=== PATIENT | female | born 1940 | race Caucasian/White ===

== ENCOUNTER 2018-01-24 09:35 | Emergency (ER) | payer MEDICARE, OTHER ==
--- NOTE | 2018-01-24 10:31 | UC ---
Lower Extremity/Ankle HPI - HPI Summary HPI Summary: 77 YO FEMALE WITH THE ONSET OF RIGHT CALF PAIN AND SWELLING ABOUT 5 DAY AGO RECENTLY DROVE HERE FROM [place] NO CP OR SOB NO SYNCOPE NO HX DVT OR PE - History of Current Complaint Chief Complaint: UCLowerExtremity Stated Complaint: RT LEG/POSSIBLE BLOOD CLOT Time Seen by Provider: 01/24/18 10:12 Hx Obtained From: Patient Onset/Duration: Gradual Onset, Lasting Days Severity Initially: Mild Severity Currently: Moderate Pain Intensity: 5 Pain Scale Used: 0-10 Numeric Aggravating Factor(s): Standing, Ambulation Alleviating Factor(s): Rest, Elevation Able to Bear Weight: Yes - Risk Factors DVT Risk Factors: Recent Travel - Allergies/Home Medications Allergies/Adverse Reactions: Allergies Allergy/AdvReac Type Severity Reaction Status Date / Time codeine Allergy Vomiting Verified 01/24/18 09:49 Home Medications: Home Medications Fluticasone/Vilanterol MDI(NF) [Breo Ellipta MDI 200/25(NF)] 1 puff INH DAILY [History Confirmed 01/24/18] Tiotropium CAP.INH* [Spiriva CAP.INH*] 1 cap.inh INH DAILY 01/24/18 [History Confirmed 01/24/18] PMH/Surg Hx/FS Hx/Imm Hx Previously Healthy: Yes Respiratory History: Asthma, Bronchitis - Surgical History Surgical History: Yes Surgery Procedure, Year, and Place: breast biopsy MANY, LAST 2001 [facility] [place],. 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 12.2011 RIGHT EYE CATARACT [facility] [place]. D&C. LEFT EYE CATARACT. CHAIRI MALFORMATION - Family History Known Family History: Positive: Cardiac Disease, Hypertension, Diabetes, Other - NO FHX DVT - Social History Alcohol Use: Rare Substance Use Type: None Smoking Status (MU): Former Smoker Type: Cigarettes When Did the Patient Quit Smoking/Using Tobacco: IN HER 20'S - Immunization History Most Recent Influenza Vaccination: 06/2015 Most Recent Pneumonia Vaccination: 06/2015 Review of Systems Constitutional: Negative Skin: Negative Eyes: Negative ENT: Negative Respiratory: Negative Cardiovascular: Negative Gastrointestinal: Negative Genitourinary: Negative Motor: Negative Neurovascular: Negative Musculoskeletal: Myalgia Neurological: Negative Psychological: Negative Is Patient Immunocompromised?: No All Other Systems Reviewed And Are Negative: Yes Physical Exam Triage Information Reviewed: Yes Appearance: Well-Appearing, No Pain Distress, Well-Nourished Vital Signs: Initial Vital Signs Temp 99.3 F 01/24/18 09:54 Pulse 96 01/24/18 09:54 Resp 20 01/24/18 09:54 BP 121/73 01/24/18 09:54 Pulse Ox 96 01/24/18 09:54 Vital Signs Reviewed: Yes Eyes: Positive: Conjunctiva Clear ENT: Positive: Hearing grossly normal. Negative: Nasal congestion, Nasal drainage, Trismus, Muffled voice, Hoarse voice Neck: Positive: Supple, Nontender, No Lymphadenopathy Respiratory: Positive: Lungs clear, Normal breath sounds, No respiratory distress Cardiovascular: Positive: RRR, No Murmur. Negative: Tachycardia Musculoskeletal: Positive: Strength Intact, Other: - ANTALGIC GAIT RIGHT CALF SWOLLEN AND TENDER Neurological Exam: Normal Neurological: Positive: Alert Psychological Exam: Normal Skin Exam: Normal Diagnostics - Radiology No standard instances Xray Interpretation: Positive (See Comments) - LARGE BURDEN OCCLUSIVE THROMBUS OF THE RIGHT LOWER EXTREMITY EXTENDING INTO THE RIGHT ILIAC VEIN Radiology Interpretation Completed By: Radiologist Lower Extremity Course/Dx - Course Course Of Treatment: [facility] called. d/w Sena Gates NP. to [facility] [place] [facility] via POV - Differential Dx/Diagnosis Provider Diagnoses: Large RLE DVT Discharge - Sign-Out/Discharge Documenting (check all that apply): Discharge/Admit/Transfer - Discharge Plan Condition: Stable Disposition: TRANS HIGHER LVL OF CARE FAC Referrals: Sergio Trejo MD [Primary Care Provider] - Additional Instructions: They are expecting your at the [facility] please go directly there take your u/s with you - Billing Disposition and Condition Condition: STABLE Disposition: EMTALA Images Front/Back of Body, Lg ([place]): 1 - 10 CM BELOW TIBIAL TUBERCLE. R 39CM L 37.5 2 - 20 CM BELOW TIBIAL TUBERCLE. R 31.5CM L 28.5 CM
--- NOTE | 2018-01-24 10:52 | RAD ---
HISTORY: Pain and swelling in the right calf COMPARISONS: None relevant TECHNIQUE: Multiple transverse and longitudinal ultrasound images were obtained of the right lower extremity from the level of the common femoral vein inferiorly through to the infrapopliteal veins using grayscale, color Doppler, and spectral Doppler imaging with and without compression and with augmentation. Comparison images were obtained of the contralateral common femoral vein. FINDINGS: VEINS: There is occlusive thrombus noted within the right lower kirsten from the calf extending superiorly to the common femoral vein and into the external iliac vein. SOFT TISSUES: Unremarkable. OTHER FINDINGS: None. 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
[2018-01-24 11:15] VITALS: BP 119/74
== END 2018-01-24 11:28 | disposition short-term general hospital (02) ==
LOC: UCCORT 09:35
DX: I82.421 Acute embolism and thrombosis of right iliac vein (principal); Z88.5 Allergy status to narcotic agent; J45.909 Unspecified asthma, uncomplicated; Z87.891 Personal history of nicotine dependence
CPT/HCPCS: 99212; G0463

== ENCOUNTER 2019-05-15 10:57 | Emergency (ER) | payer MEDICARE, OTHER ==
--- OUTSIDE RECORDS SUMMARY | 2019-05-15 11:08 | XMS REPORT | Continuity of Care Document ---
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 Onset: Asthma without status asthmaticus Jennie Fontana DO Onset: 02/07/2018 Pulmonary embolism Jennie Fontana DO Onset: 02/07/2018 Social History Type Date Description Comments Sex Unknown ETOH Use Currently consumes alcohol socially Tobacco Use Start: Unknown End: Patient is a former smoked a ppd x 2 Unknown smoker years Quit 50 years ago Recreational Drug Use Never Used Drugs Smoking Status Reviewed: 03/10/19 Patient is a former smoked a ppd x 2 smoker years Quit 50 years ago Exercise Type/Frequency Exercises regularly Water Allergies, Adverse Reactions, Alerts Active Allergies Reaction Severity Comments Date Codeine 07/26/2017 Medications Active Medications SIG Qnty Indications Ordering Date Provider Folbee 1 tabl by mouth every 90tabs Boal, 03/10/2019 2.5-25-1mg day Jennie, DO Tablets Xarelto 1 tabl by mouth every 30tabs Boufal, 02/21/2018 20mg Tablets day Jennie, DO Acetazolamide 500 mgs 2x a day Neil, 250mg Sergio Tablets Levothyroxine Sodium 1 po qd Neil, Sergio 25mcg Tablets Montelukast Sodium 1 po qd Neil, Sergio 10mg Tablets Afluria Preservative Kesha, Agatha Deborah Yan MD 0.5ml Olivia Simmonsta 1 x a day Unknown 100-25mcg/Inh Aerosol Klor-Con M10 Neil, 10Meq Sergio Tablets ER Fluticasone Neil, Propionate Sergio 50mcg/Act Suspension Celecoxib 1 by mouth once a day Unknown 200mg with food Capsules Fexofenadine HCL 1 by mouth at night Unknown 180mg Tablets Spiriva Respimat take 2 puffs once Unknown daily. 2.5mcg/Act Aerosol Levalbuterol 1 puff every 6 hours Unknown Tartrate as needed for 45mcg/Act shortness of breath Aerosol or coughing Folic Acid 1 by mouth every day Unknown 1mg Tablets Nucala inject 100mg Unknown 100mg Solution subcutaneously every Rec 4 weeks Medications Administered in Office Medication SIG Qnty Indications Ordering Provider Date Vitamin B12 Injection 1000 Oncology Nurse 08/04/2018 mcg/Ml Injection Vitamin B12 Injection 1000 Jennie Fontana, 07/06/2018 mcg/Ml Injection Vitamin B12 Injection 1000 Oncology Nurse 04/13/2018 mcg/Ml Injection Theraputic Or Diagnostic Oncology Nurse 04/13/2018 Injection Injection Vitamin B12 Injection 1000 Oncology Nurse 03/23/2018 mcg/Ml Injection Theraputic Or Diagnostic Oncology Nurse 03/23/2018 Injection Injection Vitamin B12 Injection 1000 Jennie Fontana DO 02/21/2018 mcg/Ml Injection Theraputic Or Diagnostic Jennie Fontana DO 02/21/2018 Injection Injection Immunizations Description No Information Available Vital Signs Date Vital Result Comment 05/02/2019 1:55pm BP Systolic 143 mmHg BP Diastolic 86 mmHg Body Temperature 98.2 F Heart Rate 76 /min Height 62 inches 5'2" Weight 156.25 lb BMI (Body Mass Index) 28.6 kg/m2 BSA (Body Surface Area) 1.72 m2 [place] body weight in kilograms 50 kg O2 % BldC Oximetry 96 % Pain Level 3 Lt knee 03/10/2019 10:38am BP Systolic 139 mmHg BP Diastolic 84 mmHg Body Temperature 97.0 F Heart Rate 71 /min Respiratory Rate 20 /min Height 62 inches 5'2" Weight 156.00 lb BMI (Body Mass Index) 28.5 kg/m2 BSA (Body Surface Area) 1.72 m2 [place] body weight in kilograms 50 kg O2 % BldC Oximetry 96 % Pain Level 3 back of L knee due to strain Results Test Date Facility Test Result H/L Range Note Iron-Tibc-%Sat 04/24/2019 [facility] Serum Iron 71 g/dL Normal 50-170 1 [address] [place], [place] [id number] [phone] Total Iron Binding Capacity 340 g/dL Normal 250-450 Transferrin %Saturation 21 % Normal 12-57 Laboratory test 04/24/2019 [facility] Ferritin 10 ng/mL Normal 8-252 finding [address] [place] [address] [phone] CBC W/Automated 04/24/2019 [facility] White Blood 5.3 K/uL Normal 3.1-10.7 Diff [address] [place] [address] [phone] Red Blood Count 4.49 M/uL Normal 3.90-5.40 Hemoglobin 13.2 gm/dL Normal 11.6-15.8 Hematocrit 42.5 % Normal 36.0-46.1 Mean Cell Volume 94.7 fl Normal 80.9-99.0 Mean Corpuscular HGB 29.4 pg Normal 25.9-32.7 Mean Corpuscular HGB Conc 31.1 g/dL Normal 30.8-34.3 Platelet Count 235 K/uL Normal 155-360 Red Cell Distri Width SD 44.5 fl Normal 36-47 Red Cell Distri Width %CV 12.9 % Normal 11.7-14.4 Mean Platelet Volume 10.4 fl Normal 8.9-12.4 Neut% 49.8 % Normal 40.4-72.8 Lymph % 41.2 % Normal 20.0-42.0 [place] % 7.1 % Normal 4.3-13.2 Eo% 0.9 % Normal 0.0-6.6 Bas% 0.8 % Normal 0.0-1.1 Immature Grans 0.2 % Normal 0.0-5.0 NRBC % 0.0 /100WBC < 10/ 100 WBC Neut# 2.65 K/uL Normal 1.8-7.0 Lymph # 2.19 K/uL Normal 1.0-4.0 [place] # 0.38 K/uL Normal 0.3-0.9 Eos # 0.05 K/uL Normal 0.0-0.5 Baso # 0.04 K/uL Normal 0.0-0.1 Immature Grans Absolute 0.01 K/uL NRBC # 0.00 K/uL Comprehensive 04/24/2019 [facility] Glucose 96 mg/dL Normal 74-106 Metabolic Panel [address] [place], [place] [id number] [phone] BUN 17 mg/dL Normal 7-18 Creatinine 0.7 mg/dL Normal 0.6-1.3 Glom Filtration Rate, Estimate >60 mL/min >60 If >60 mL/min >60 2 BUN/Creat 24.2 ratio Sodium 146 mmol/L High 136-145 Potassium 3.9 mmol/L Normal 3.5-5.1 Chloride 121 mmol/L Critical high 98-107 Carbon Dioxide 18 mmol/L Low 21-32 Anion Gap 7 mEq/L Low 8-16 Calcium 8.2 mg/dL Low 8.5-10.1 Total Protein 6.5 g/dL Normal 6.4-8.2 Albumin 3.4 g/dL Normal 3.4-5.0 Globulin 3.1 g/dL Normal 1.9-4.3 Alb/Glob 1.1 ratio Bilirubin,Total 0.3 mg/dL Normal 0.2-1.0 Sgot/Ast 11 U/L Low 15-37 3 SGPT/Alt 17 U/L Normal 12-78 Alkaline Phosphatase 67 U/L Normal 45-117 Vitamin B12 And 04/24/2019 [facility] Vitamin B12 428 pg/mL Normal 193-[address] [place], [place] [id number] [phone] Folic Acid > 20.0 ng/mL High 3.1-17.5 Homocyst(E)Ine, 01/27/2019 [facility] Homocyst(e)ine, 12.2 0.0-15.0 4, P/S [address] P/S umol/L 5 [place] [address] [phone] Iron-Tibc-%Sat 01/27/2019 [facility] Serum Iron 89 Normal 50-[address] g/[place] [address] [phone] Total Iron Binding Capacity 359 g/dL Normal 250-450 Transferrin %Saturation 25 % Normal 12-57 Laboratory test 01/27/2019 [facility] Ferritin 15 ng/mL Normal 8-[address] [place] [address] [phone] CBC W/Automated 01/27/2019 [facility] White Blood 5.7 K/uL Normal 3.1-10.[address] [place] [address] [phone] Red Blood Count 4.40 M/uL Normal 3.90-5.40 Hemoglobin 13.6 gm/dL Normal 11.6-15.8 Hematocrit 42.9 % Normal 36.0-46.1 Mean Cell Volume 97.5 fl Normal 80.9-99.0 Mean Corpuscular HGB 30.9 pg Normal 25.9-32.7 Mean Corpuscular HGB Conc 31.7 g/dL Normal 30.8-34.3 Platelet Count 247 K/uL Normal 155-360 Red Cell Distri Width SD 47.4 fl High 36-47 Red Cell Distri Width %CV 13.1 % Normal 11.7-14.4 Mean Platelet Volume 10.9 fl Normal 8.9-12.4 Neut% 62.4 % Normal 40.4-72.8 Lymph % 29.8 % Normal 20.0-42.0 [place] % 6.0 % Normal 4.3-13.2 Eo% 0.9 % Normal 0.0-6.6 Bas% 0.5 % Normal 0.0-1.1 Immature Grans 0.4 % Normal 0.0-5.0 NRBC % 0.0 /100WBC < 10/ 100 WBC Neut# 3.55 K/uL Normal 1.8-7.0 Lymph # 1.69 K/uL Normal 1.0-4.0 [place] # 0.34 K/uL Normal 0.3-0.9 Eos # 0.05 K/uL Normal 0.0-0.5 Baso # 0.03 K/uL Normal 0.0-0.1 Immature Grans Absolute 0.02 K/uL NRBC # 0.00 K/uL Comprehensive Metabolic 01/27/2019 [facility] Glucose 122 mg/dL High 74-106 Panel [address] [place] [address] [phone] BUN 22 mg/dL High 7-18 Creatinine 0.9 mg/dL Normal 0.6-1.3 Glom Filtration Rate, Estimate >60 mL/min >60 If >60 mL/min >60 6 BUN/Creat 24.4 ratio Sodium 141 mmol/L Normal 136-145 Potassium 3.6 mmol/L Normal 3.5-5.1 Chloride 112 mmol/L High 98-107 Carbon Dioxide 20 mmol/L Low 21-32 Anion Gap 9 mEq/L Normal 8-16 Calcium 8.9 mg/dL Normal 8.5-10.1 Total Protein 6.7 g/dL Normal 6.4-8.2 Albumin 3.6 g/dL Normal 3.4-5.0 Globulin 3.1 g/dL Normal 1.9-4.3 Alb/Glob 1.2 ratio Bilirubin,Total 0.3 mg/dL Normal 0.2-1.0 Sgot/Ast 18 U/L Normal 15-37 SGPT/Alt 24 U/L Normal 12-78 Alkaline Phosphatase 74 U/L Normal 45-117 Vitamin B12 And 01/27/2019 [facility] Vitamin B12 379 pg/mL Normal 193-986 Folate [address] [place] [address] [phone] Folic Acid > 20.0 ng/mL High 3.1-17.5 Laboratory test 01/27/2019 [facility] Vitamin 31.4 30.0-100.0 7 finding [address] [facility] D,25-Hydroxy ng/[place] [address] [phone] 1 E53.9,E61.1,E72.12 2 Note: Persistent reduction for 3 months or more in an eGFR <60 mL/min/1.73 m2 defines CKD. Patients with eGFR values >/=60 mL/min/1.73 m2 may also have CKD if evidence of persistent proteinuria is present. The original MDRD equation for estimated GFR is not valid for patients less than 18 years of age. Additional information may be found at www.kdoqi.org. 3 Values below the stated reference ranges of AST and ALT can be seen in normal populations. Clinical correlation is suggested. 4 E53.9 E61.1 E72.12 5 Performed at: RN - [facility] [address] [id number] Tube Machine Operator Helper: Jo Rodriguez MD, Phone: [phone] 6 Note: Persistent reduction for 3 months or more in an eGFR <60 mL/min/1.73 m2 defines CKD. Patients with eGFR values >/=60 mL/min/1.73 m2 may also have CKD if evidence of persistent proteinuria is present. The original MDRD equation for estimated GFR is not valid for patients less than 18 years of age. Additional information may be found at www.kdoqi.org. 7 Vitamin D deficiency has been defined by the [place] [employer] and an Endocrine Society practice guideline as a level of serum 25-OH vitamin D less than 20 ng/mL (1,2). The Endocrine Society went on to further define vitamin D insufficiency as a level between 21 and 29 ng/mL (2). 1. IOM ([place] [employer]). 2010. Dietary reference intakes for calcium and D. [place]: The National Academies Press. 2. Aureliano MF, Tierra NC, Tito ESCALANTE, et al. Evaluation, treatment, and prevention of vitamin D deficiency: an Endocrine Society clinical practice guideline. JCEM. 2010; 96(7):1911-30. Performed at: RN - [facility] [address] [id number] Tube Machine Operator Helper: Jo Rodriguez MD, Phone: [phone] Procedures Description No Information Available Medical Devices Description No Information Available Encounters Type Date Location Provider Dx Diagnosis Office Visit 05/02/2019 Oncology Office Shannon Carlos MD E53.9 Vitamin B 2:00p deficiency, unspecified E72.12 Methylenetetrahydrofolate reductase deficiency I26.99 Other pulmonary embolism without acute cor pulmonale Office Visit 03/10/2019 10:30a Oncology Office Boufal, I26.99 Other pulmonary Jennie, DO embolism without acute cor pulmonale E72.12 Methylenetetrahydrofolate reductase deficiency E53.9 Vitamin B deficiency, unspecified E61.1 Iron deficiency Assessments Date Code Description Provider 05/02/2019 E53.9 Vitamin B deficiency, unspecified Shannon Carlos MD 05/02/2019 E72.12 Methylenetetrahydrofolate reductase deficiency Shannon Carlos MD 05/02/2019 I26.99 Other pulmonary embolism without acute cor Shannon Carlos MD pulmonale 04/24/2019 E53.9 Vitamin B deficiency, unspecified Boufal Jennie, DO 04/24/2019 E53.9 Vitamin B deficiency, unspecified Oncology Nurse 04/24/2019 E61.1 Iron deficiency BoufalAmyJennie, DO 04/24/2019 E61.1 Iron deficiency Oncology Nurse 04/24/2019 E72.12 Methylenetetrahydrofolate reductase deficiency BojordyalAmyJennie, DO 04/24/2019 E72.12 Methylenetetrahydrofolate reductase deficiency Oncology Nurse 03/10/2019 I26.99 Other pulmonary embolism without acute cor BojordyalAmyJennie, DO pulmonale 03/10/2019 E72.12 Methylenetetrahydrofolate reductase deficiency BojordyalAmyJennie, DO 03/10/2019 E53.9 Vitamin B deficiency, unspecified Boufal, Jennie, DO 03/10/2019 E61.1 Iron deficiency BojordyalAmyJennie, DO 01/27/2019 E53.9 Vitamin B deficiency, unspecified Boufal, Jennie, DO 01/27/2019 E53.9 Vitamin B deficiency, unspecified Oncology Nurse 01/27/2019 E61.1 Iron deficiency JacquelineAmy bennettaret, DO 01/27/2019 E61.1 Iron deficiency Oncology Nurse 01/27/2019 E72.12 Methylenetetrahydrofolate reductase deficiency BoAmy watkinsaret, DO 01/27/2019 E72.12 Methylenetetrahydrofolate reductase deficiency Oncology Nurse Plan of Treatment Future Appointment(s):07/31/2019 2:00 pm - Jennie Fontana DO at Oncology [facility]1707/17/2019 2:00 pm - Oncology Nurse at Oncology [facility]1608/07/2019 11:00 am - Jose Gray MD at [facility]20/27/2019 - Shannon Carlos MDE53.9 Vitamin B deficiency, unspecifiedNew Labs:Vitamin B12 And Folate, Ordered: 05/02E72.12 Methylenetetrahydrofolate reductase deficiencyNew Labs:Vitamin B12 And Folate, Ordered: 05/02/19CBC W/Automated Diff, Ordered: Comprehensive Metabolic Panel, Ordered: 05/02/19I26.99 Other pulmonary embolism without acute cor pulmonaleNew Labs:Vitamin B12 And Folate, Ordered: CBC W/Automated Diff, Ordered: 05/02/19Comprehensive Metabolic Panel, Ordered: 05/02/19AllFollow up:return 3 months lab on return cbc/cmp/b12/fol Functional Status Description No Information Available Mental Status Description No Information Available Referrals Description No Information Available
--- OUTSIDE RECORDS SUMMARY | 2019-05-15 11:08 | XMS REPORT | Continuity of Care Document ---
:1940 Author Name [employer] Super[employer], System Address Unavailable Unavailable , Care Team Providers Name Role Phone Sergio Trejo Unavailable Sergio Trejo Unavailable José Miguel Covarrubias MD, Mc Allison Unavailable Eddy MENDEZ, Rosamaria Bronson Unavailable DeFrukhoa BUCHANAN, Renay Unavailable Sophy SHARIFN, Misa Unavailable Unavailable Ratna Singh RN Unavailable Unavailable More LRT, Uli Unavailable Unavailable Deyvi CAD PROGRAMMER, Stacia Unavailable Unavailable Katalina SHARIFN, Flor Unavailable Unavailable Spring Danielson Unavailable Unavailable Patricio CAD PROGRAMMER, Esau Unavailable Unavailable Mary Arora Unavailable Unavailable Unavailable Unavailable Problems ABNORMAL FINDING ON BREAST IMAGING (R92.8) (793.89) Maren, NPC Renay ALLERGIC RHINITIS (J30.9) (477.9) Tadruscio, NPC Renay ASTHMA (J45.909) (493.90) Maren, NPC Renay Comments: Dr. Gambino Prognosis: Patient was evaluated in the office today in routine follow up. Patient symptoms at baseline. Physical exam and spirometry reviewed and noted to be stable. Noted to be doing well with current treatment. sheldon-nulcala Compliance with medications discussed and encouraged. Recommendations for avoidance of environmental triggers discussed and step mena approach reviewed. Will continue current treatment regime and cont act office if experiences any difficulties with therapy or an increase in symptoms. The patient was reminded to obtain an influenza shot this season.The patient was discussed and approved by Dr. Mc Covarrubias. 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.58) DeFruscio, NPC Renay GERD (530.81) (Renamed from GASTROESOPHAGEAL REFLUX DISEASE) (K21.9) (530.81) Lucilasclien NPC Renay Prognosis: Maintainstrict anti reflux measures and continue PPI as of 2018 GERD (GASTROESOPHAGEAL REFLUX DISEASE) (K21.9) (530.81) DeFrusclien, NPC Renay HYPOTHYROID (E03.9) (244.9) DeFruscio, NPC Renay JOINT PAIN (M25.50) (719.40) DeFruscio, NPC Renay KIDNEY STONE (N20.0) (592.0) DeFruscio, NPC Renay LOW BACK PAIN, NON-SPECIFIC (M54.5) (724.2) DeFruscio, NPC Renay MEMORY LOSS (R41.3) (780.93) DeFruscio, NPC Renay OSTEOPENIA (M85.80) (733.90) DeFruscio, NPC Renay OSTEOPOROSIS (M81.0) (733.00) DeFruscio, NPC Renay PULMONARY EMBOLI (I26.99) (415.19) DeFrusclien, NPC Renay Comments: Hospitalized at Prognosis: She is being managed on Xarelto by hematology in [place]. She tells me a genetic work up was completed by them and she has some genetic predisposition. Records being requested. as of 21-Feb-2019 [facility] 01/2018 THYROID NODULE (E04.1) (241.0) Lucilasclien, NPC Renay Mental Status MEMORY LOSS Allergies and Adverse Reactions Codeine/Codeine Derivatives (Allergy) Reaction: Vomiting Medications ACETAZOLAMIDE, 250MG (Oral Tablet); 2 two times daily (250 MG) Albuterol Sulfate (2.5 MG/3ML) 0.083% Inhalation Nebulization Solution; 1 Nebulized Soln four times daily, as needed for 90 days Ordered: 21-Feb-2019 Start: 21-Feb-2019 Quantity: 360 {Nebule} DEWAYNE Engel Comments: Medication taken as needed. Refills: 3 Albuterol Sulfate (2.5 MG/3ML) 0.083% Inhalation Nebulization Solution; 1 Nebulized Soln four times daily, as needed for 90 days Ordered: 21-Feb-2019 Start: 21-Feb-2019 Quantity: 30 {Vial} DEWAYNE Engel Comments: Medication taken as needed. Refills: 3 Breo Ellipta 100-25 MCG/INH Inhalation Aerosol Powder Breath Activated; 1 (one ) Aero Pow Br Act daily for 90 days Ordered: 03-May-2019 Start: 03-May-2019 Quantity: 3 {Inhaler} Refills: 3 Breo Ellipta 100-25 MCG/INH Inhalation Aerosol Powder Breath Activated; 1 (one ) Aero Pow Br Act daily for 90 days Ordered: 03-May-2019 Start: 03-May-2019 Quantity: 90 {Inhaler} Refills: 4 CELEBREX, 200MG (Oral Capsule); daily (200 MG) Cyanocobalamin 100 MCG/ML Injection Solution; every two weeks (100 MCG/ML) FEXOFENADINE HCL, 180MG (Oral Tablet); daily (180 MG) FOLIC ACID, 1MG (Oral Tablet); 1 daily (1 MG) LACTIC ACID, 85% (Solution); uAD (85 %) LEVOTHYROXINE SODIUM, 25MCG (Oral Tablet); 1 daily (25 MCG) Montelukast Sodium 10 MG Oral Tablet; daily for 0 days Ordered: 21-Feb-2019 Start: 21-Feb-2019 Refills: 0 DEWAYNE Engel NexIUM 40 MG Oral Capsule Delayed Release; daily (40 MG) Nucala 100 MG Subcutaneous Comments: [place] Solution Reconstituted; 1 vial monthly (100 MG) Potassium Chloride ER 10 MEQ Oral Capsule Extended Release; 3-4 times a week (10 MEQ) ProAir HFA 108 (90 Base) MCG/ACT Inhalation Aerosol Solution; 2 (two) Puff(s) QID prn for 30 days Ordered: 21-Feb-2019 Start: 21-Feb-2019 Quantity: 1 {Inhaler} DeFrusclien, NPC Renay Refills: 12 ProAir HFA 108 (90 Base) MCG/ACT Inhalation Aerosol Solution; 2 (two) Puff(s) QID prn for 90 days Ordered: 21-Feb-2019 Start: 21-Feb-2019 Quantity: 720 {Inhalation} DeFrusclien, NPC Renay Refills: 4 PROBIOTIC (Oral Capsule) Spiriva Respimat 1.25 MCG/ACT Inhalation Aerosol Solution; 2 (two) Aerosol Soln daily for 90 days Ordered: 21-Feb-2019 Start: 21-Feb-2019 Quantity: 3 {Inhaler} DeFruscio, NPC Renay Refills: 3 VITAMIN B-12, 1000MCG (Oral Tablet); 1 daily (1000 MCG) VITAMIN D, 1000UNIT (Oral Capsule); 1 daily (1000 UNIT) VITAMIN E, 200UNIT (Oral Capsule); 1 daily (200 UNIT) Xarelto 20 MG Oral Tablet; 1 daily (20 MG) Advair Diskus 500-50 MCG/DOSE Inhalation Aerosol Powder Breath Activated; 1 inhalation two times daily for 90 days Ordered: 01-Mar-2017 Start: 2015 End: 01-Mar-2017 Quantity: 3 {Inhaler} TINA Curry Status: Inactive Refills: 3 Breo Ellipta 200-25 MCG/INH Inhalation Aerosol Powder Breath Activated; 1 (one ) Aero Pow Br Act daily for 90 days Ordered: 03-Aug-2016 Start: 14-Apr-2016 End : 03-Aug-2016 Quantity: 3 {Inhaler} DeFruscio, NPC Renay Status: Inactive Refills: 3 ESOMEPRAZOLE MAGNESIUM, 40MG (Oral Status: Inactive Capsule Delayed Release); daily (40 MG) FLUTICASONE PROPIONATE, 50MCG/ACT Status: Inactive (Nasal Suspension); 1 spray daily (50 MCG/ACT) LEVALBUTEROL TARTRATE, 45MCG/ACT Status: Inactive (Inhalation Aerosol); 1 puff every six hours (45 MCG/ACT) ZETONNA, 37MCG/ACT (Nasal Aerosol Solution); 2 (two) [place] daily for 90 days Ordered: 04-Mar-2015 Start: 03-Sep-2014 End: 04-Mar-2015 Quantity: 180 {Inhaler} TINA Carnes Status: Inactive Refills: 3 Procedures REST OXIMETRY (95168) Status: Completed 23-Aug-2018 RESPIRATORY FLOW VOLUME LOOP (72688) Status: Completed 04-Mar-2015 REST/ EXERCISE OXIMETRY (08142) Status: Completed 03-Sep-2014 AIRFLOW RESISTANCE MEASUREMENT: PULM FUNCT TEST Status: Completed 2013 OSCILLOMETRY (84200) DLCO (CARBON MONOXIDE DIFFUSING CAPACITY) (10057) Status: Completed 2013 RESPIRATORY FLOW VOLUME LOOP (34533) Status: Completed 03-Sep-2014 THORACIC GAS VOLUME: AIRWAY CLOSING VOLUME Status: Completed 03-Sep-2014 MEASUREMENT: PULM FUNCTION TEST BY GAS (99670) TOTAL BODY PLETHYSMOGRAPHY: AIRFLOW RESISTANCE Status: Completed 03-Sep-2014 MEASUREMENT (82188) TOTAL VITAL CAPACITY (31448) Status: Completed 03-Sep-2014 Breast Biopsy Status: Completed Comments: Bilateral. Cataract Extraction-Bilateral Status: Completed Dilation and Curettage of Uterus Status: Completed 1979 Flu Vaccine Status: Completed 02-Aug-2018 Comments: 06/2017 H/O SINUS SURGERY Status: Completed 2007 Pneumovax Status: Completed 2012 Prevnar 13 Status: Completed Jul-2015 Pre/Post next visit (67923)Result: Hemoptysis: No Status: Completed 2018 PRE AND POST (62176)Result: Hemoptysis: No Status: Completed 23-Aug-2018 PRE AND POST W/ RT (60032)Result: Hemoptysis: No Status: Completed 08-Mar-2018 Pre/Post next visit (00346)Result: Hemoptysis: No Status: Completed 2015 Pre/Post next visit (51420)Result: Hemoptysis: No Status: Completed 2014 CT THORAX W/O DYE (22369)Result: Are you or Status: Completed could you become ?: No; When was you last CXR/CT?: over 1 week ago; Remelt Sugar Boiler: ZOILA Douglas PRE AND POST (10339)Result: Hemoptysis: No Status: Completed 03-Sep-2014 Immunizations Influenza (3 years and up) On: 06-Aug-2014 Comments:approx. date Influenza (3 years and up) On: Jun-2015 Influenza (3 years and up) On: Jun-2016 Influenza (3 years and up) On: 08-Jun-2017 Comments:Date approximate Pneumococcal (2 yrs and up) PPSV23 On: 2012 Pneumococcal conjugate vaccine, 13 valent, IM On: Jul-2015 Family History Brother 1 Status: Active Comments: In stable health. Hypertension. Father Status: Active Comments: . Emphysema. smoker since age 9, DM Maternal Grandmother Status: Active Comments: . Cancer. Mother Status: Active Comments: . Lung Cancer. nonsmoker Sister 1 Status: Active Comments: In stable health. Hypertension. DM Sleep Apnea Status: Active Comments: Son. x2 Social History Alcohol use: Occasional alcohol use. Drinks wine. Caffeine use: Coffee. 1 serving / day. Tea. 2 servings / day. Current work status: Retired. Comments: TEACHER Marital status: . No drug use Pets/Animals: Cat. Comments: X 2 Tobacco use: Former smoker. Comments: [id number] 10 CIGERETTES Q D Former smoker Female Plan of Treatment PRE/POST W/ RT (79056) Start: 21-Feb-2020 Intent REST OXIMETRY (38208) Start: 01-Mar-2017 Intent RESPIRATORY FLOW VOLUME LOOP (01487) Start: 01-Mar-2017 Intent Pre/Post next visit (51065) Start: 01-Mar-2017 Intent ACT next visit (1005F) Start: 01-Mar-2017 Intent ACT next visit (1005F) Start: 03-Aug-2016 Intent RESPIRATORY FLOW VOLUME LOOP (34480) Start: 02-Mar-2016 Intent PRE AND POST (50441) Start: 02-Mar-2016 Intent Medical; PRE AND POST RT - Start: 27-Feb-2020 11:15 Appointment Request [facility] Office Resp Therapy [facility], [facility] Medical; FOLLOW UP 30 - 1YR FU 30,PPRT Start: 27-Feb-2020 11:30 Appointment Request [facility] Office DEWAYNE Engel GERD (530.81) (Renamed from GASTROESOPHAGEAL REFLUX DISEASE) : Patient Education: Reflux Esophagitis *: gastroesophageal reflux Indication:GERD (530.81) (Renamed from GASTROESOPHAGEAL REFLUX DISEASE) GERD (530.81) (Renamed from GASTROESOPHAGEAL REFLUX DISEASE) : Reflux precautions reinforced Indication:GERD (530.81) (Renamed from GASTROESOPHAGEAL REFLUX DISEASE) GERD (530.81) (Renamed from GASTROESOPHAGEAL REFLUX DISEASE) : Medication compliance reinforced Indication:GERD (530.81) (Renamed from GASTROESOPHAGEAL REFLUX DISEASE) ASTHMA : Avoid triggers Indication:ASTHMA ASTHMA : Avoid triggers Indication:ASTHMA PULMONARY EMBOLI : Medication compliance reinforced Indication:PULMONARY EMBOLI ASTHMA : Avoid triggers Indication:ASTHMA ASTHMA : Avoid triggers Indication:ASTHMA ASTHMA : Avoid triggers Indication:ASTHMA ASTHMA : Avoid triggers Indication:ASTHMA ASTHMA : Avoid triggers Indication:ASTHMA ASTHMA : Avoid triggers Indication:ASTHMA Results No Known Results No Result Information Available Vital Signs 21-Feb-2019 11:01 Temperature 96.4 f Comments: Method: Temporal Pulse 78 /min Comments: Pattern: Regular Respiration Rate 14 /min Comments: Pattern: Unlabored O2 SAT 97 % Comments: Room air BP Systolic 124 mm[Hg] Comments: Patient Position: Sitting; Cuff Location: Left Arm; Cuff Size: Standard BP Diastolic 78 mm[Hg] Comments: Patient Position: Sitting; Cuff Location: Left Arm; Cuff Size: Standard Weight 156 lb Height 62 in BMI 28.53 kg/m2 BSA 1.72 m2 23-Aug-2018 11:03 Temperature 97.3 f Comments: Method: Tympanic Pulse 77 /min Comments: Pattern: Regular Respiration Rate 14 /min Comments: Pattern: Unlabored O2 SAT 98 % Comments: Room air BP Systolic 122 mm[Hg] Comments: Patient Position: Sitting; Cuff Location: Left Arm; Cuff Size: Standard BP Diastolic 62 mm[Hg] Comments: Patient Position: Sitting; Cuff Location: Left Arm; Cuff Size: Standard Weight 157 lb Height 62 in BMI 28.72 kg/m2 BSA 1.72 m2 08-Mar-2018 11:09 Temperature 97.7 f Comments: Method: Tympanic Pulse 81 /min Comments: Pattern: Regular Respiration Rate 12 /min Comments: Pattern: Unlabored O2 SAT 98 % Comments: Room air BP Systolic 118 mm[Hg] Comments: Patient Position: Sitting; Cuff Location: Left Arm; Cuff Size: Standard BP Diastolic 80 mm[Hg] Comments: Patient Position: Sitting; Cuff Location: Left Arm; Cuff Size: Standard Weight 154 lb Height 62 in BMI 28.17 kg/m2 BSA 1.71 m2 01-Mar-2017 14:24 Temperature 97.6 f Comments: Method: Tympanic Pulse 76 /min Comments: Pattern: Regular Respiration Rate 14 /min Comments: Pattern: Unlabored O2 SAT 97 % Comments: Room air BP Systolic 114 mm[Hg] Comments: Patient Position: Sitting; Cuff Location: Left Arm; Cuff Size: Standard BP Diastolic 74 mm[Hg] Comments: Patient Position: Sitting; Cuff Location: Left Arm; Cuff Size: Standard Weight 157 lb Height 62 in BMI 28.72 kg/m2 BSA 1.72 m2 03-Aug-2016 14:06 Temperature 98.1 f Comments: Method: Tympanic Pulse 79 /min Comments: Pattern: Regular Respiration Rate 12 /min Comments: Pattern: Unlabored O2 SAT 98 % Comments: Room air BP Systolic 116 mm[Hg] Comments: Patient Position: Sitting; Cuff Location: Left Arm; Cuff Size: Standard BP Diastolic 74 mm[Hg] Comments: Patient Position: Sitting; Cuff Location: Left Arm; Cuff Size: Standard Weight 162 lb Height 62 in BMI 29.63 kg/m2 BSA 1.75 m2 02-Mar-2016 10:11 Temperature 97.1 f Comments: Method: Tympanic Pulse 71 /min Comments: Pattern: Regular Respiration Rate 16 /min Comments: Pattern: Unlabored O2 SAT 97 % Comments: Room air BP Systolic 122 mm[Hg] Comments: Patient Position: Sitting; Cuff Location: Left Arm; Cuff Size: Standard BP Diastolic 80 mm[Hg] Comments: Patient Position: Sitting; Cuff Location: Left Arm; Cuff Size: Standard Weight 159.25 lb Height 62 in BMI 29.13 kg/m2 BSA 1.74 m2 04-Mar-2015 10:34 Temperature 96.3 f Comments: Method: Tympanic Pulse 70 /min Comments: Pattern: Regular Respiration Rate 14 /min Comments: Pattern: Unlabored O2 SAT 98 % Comments: Room air BP Systolic 114 mm[Hg] Comments: Patient Position: Sitting; Cuff Location: Right Arm; Cuff Size: Standard BP Diastolic 70 mm[Hg] Comments: Patient Position: Sitting; Cuff Location: Right Arm; Cuff Size: Standard Weight 160 lb Height 62 in BMI 29.26 kg/m2 BSA 1.74 m2 03-Sep-2014 10:27 Comments: 2 minute walk sat 98% Temperature 96.7 f Comments: Method: Tympanic Pulse 76 /min Comments: Pattern: Regular Respiration Rate 12 /min Comments: Pattern: Unlabored O2 SAT 98 % Comments: Room air BP Systolic 144 mm[Hg] Comments: Patient Position: Sitting; Cuff Location: Left Arm; Cuff Size: Standard BP Diastolic 76 mm[Hg] Comments: Patient Position: Sitting; Cuff Location: Left Arm; Cuff Size: Standard Weight 157 lb Height 62 in BMI 28.72 kg/m2 BSA 1.72 m2 Advance Directives HIPAA - Effective on 02/21/2019. Expiration date unspecified Effective: 2018 Patient specified Unknown. Encounters Office Visit 21-Feb-2019 11:15 To 21-Feb-2019 12:38 Encounter Reason: ASTHMA, FOLLOW UP - The patient's asthma causes daytime symptoms 1 to 2 times per month. The patient' [facility] Office s asthma never disturbs sleep. Symptoms do not include wheezing, chest tightness, shortness of breath, productive cough, non-productive cough or chest pain. The patient describes this as mild and resolv ed. Symptoms are exacerbated by cold temperature, while symptoms are not exacerbated by activity, inhaler use or lying down. Symptoms are relieved by inhaler use and rest. Associated symptoms do not inc lude orthopnea, fever, chills, upper respiratory infection symptoms or allergy symptoms. Current treatment includes inhaled albuterol, inhaled long-acting beta -2 agonists, inhaled corticosteroids and in haled anticholinergics (and Nucala). Bronchodilator use is becoming less frequent. By report there is good compliance with treatment, good tolerance of treatment and good symptom control. Pertinent medi judy history includes hospitalization for asthma, smoking and allergic rhinitis , while pertinent medical history does not include intubation, chronic obstructive pulmonary disease, other pulmonary diseas e, recurrent bronchitis, recurrent pneumonia, gastroesophageal reflux or hypertension. The patient has not been exposed to wood burning stove, mold/ mildew in the home, tobacco smoke, animal dander, aspi rin or nonsteroidal anti-inflammatory drugs. Pertinent family history includes chronic obstructive pulmonary disease, cardiovascular disease and lung cancer, while pertinent family history does not include asthma. Encounter Diagnosis: ASTHMA, GERD (530.81) ( Renamed from GASTROESOPHAGEAL REFLUX DISEASE) Office Visit 23-Aug-2018 10:54 To 23-Aug-2018 11:41 Encounter Reason: ASTHMA, FOLLOW UP - The patient's asthma causes daytime symptoms 1 to 2 times per month. The patient' [facility] Office s asthma never disturbs sleep. Symptoms do not include wheezing, chest tightness, shortness of breath, productive cough, non-productive cough or chest pain. The patient describes this as mild and resolv ed. Symptoms are exacerbated by cold temperature, while symptoms are not exacerbated by activity, inhaler use or lying down. Symptoms are relieved by inhaler use and rest. Associated symptoms do not inc lude orthopnea, fever, chills, upper respiratory infection symptoms or allergy symptoms. Current treatment includes inhaled albuterol, inhaled long-acting beta -2 agonists, inhaled corticosteroids, inhal ed anticholinergics and omalizumab (Xolair) (Nucala). Bronchodilator use is becoming less frequent. By report there is good compliance with treatment, good tolerance of treatment and good symptom contro l. Pertinent medical history includes hospitalization for asthma, smoking and allergic rhinitis, while pertinent medical history does not include intubation, chronic obstructive pulmonary disease, other pulmonary disease, recurrent bronchitis, recurrent pneumonia, gastroesophageal reflux or hypertension. The patient has not been exposed to wood burning stove, mold/mildew in the home, tobacco smoke, an imal dander, aspirin or nonsteroidal anti-inflammatory drugs. Pertinent family history includes chronic obstructive pulmonary disease, cardiovascular disease and lung cancer, while pertinent family history does not include asthma. Encounter Diagnosis: ASTHMA Office Visit 08-Mar-2018 10:57 To 08-Mar-2018 12:57 Encounter Reason: ASTHMA, FOLLOW UP - The patient's long-term asthma pattern may be classified as moderate persistent. [facility] The last clinic visit was 6 month(s) ago. Management changes made at the last visit include adding prednisone for bronchitis (them she was diagnosed with a PE in January 2018. IS being seen and managed by hematology oncology in [facility]. Records being requested. She required treatmetn for her asthma flare Twice with prednisone since her last appointment.). The patient's asthma causes da ytime symptoms 1 to 2 times per week. The patient's asthma is not disturbing sleep. Symptoms include wheezing, chest tightness, shortness of breath and non- productive cough, while symptoms do not includ e productive cough or chest pain. The patient describes the difficulty breathing as chest tightness. Onset of symptoms was 20 year(s) ago. Onset followed an environmental change, exposure to an irritant , exposure to an allergen and symptoms of an upper respiratory infection. The symptoms occur intermittently. The episodes occur weekly. The patient describes this as mild and worsening. Symptoms are exa cerbated by cold temperature. Symptoms are relieved by inhaler use, rest and oral steroids, while symptoms are not relieved by lying down. Associated symptoms include allergy symptoms (Was to have aller gy injections but was not interested in getting injections regularly, is now beginning to reconsider), while associated symptoms do not include orthopnea, fever, chills or upper respiratory infection sy mptoms. Current treatment includes inhaled albuterol, inhaled long-acting beta- 2 agonists, inhaled corticosteroids, leukotriene modifiers and immunotherapy ( desensitization) (plan is to start immunother apy.). The patient reports use of rescue bronchodilator 1 times a day. Bronchodilator use is staying the same. By report there is good compliance with treatment, good tolerance of treatment and fair sym ptom control. Pertinent medical history includes allergic rhinitis and gastroesophageal reflux, while pertinent medical history does not include hospitalization for asthma, intubation, chronic obstructi ve pulmonary disease, other pulmonary disease, smoking, recurrent bronchitis, recurrent pneumonia or hypertension. The patient has not been exposed to wood burning stove, mold/mildew in the home, tobacc o smoke, animal dander, aspirin or nonsteroidal anti-inflammatory drugs. Pertinent family history includes chronic obstructive pulmonary disease, cardiovascular disease and lung cancer, while pertinent family history does not include asthma. The patient is currently able to do activities of daily living with limitations. Past evaluation has included pulmonary function testing, chest x-ray, chest CT ( at scan was done after a chest x-ray showed a nodule.), allergy consultation, a specialist evaluation and allergy testing. Encounter Diagnosis: ASTHMA, PULMONARY EMBOLI Medication Order 16-Feb-2018 13:58 To 16-Feb-2018 16:06 Encounter Diagnosis: ASTHMA [facility] Office Medication Order 29-Sep-2017 16:28 To 30-Sep-2017 9:12 Encounter Diagnosis: ASTHMA [facility] Medication Order 14-May-2017 16:09 To 17-May-2017 9:06 Encounter Diagnosis: ASTHMA [facility] Office Visit 01-Mar-2017 14:16 To 01-Mar-2017 15:04 Encounter Reason: ASTHMA, FOLLOW UP - The patient's long-term asthma pattern may be classified as mild persistent. The [facility] Office last clinic visit was 6 month(s) ago. No changes in management were made at the last visit. The patient's asthma causes daytime symptoms 1 to 2 times per week. The patient's asthma never disturbs sleep. Symptoms include wheezing, chest tightness, shortness of breath and non- productive cough, while symptoms do not include productive cough or chest pain. The patient describes the difficulty breathing as chest tightness. Onset of symptoms was 19 year(s) ago. Onset followed an environmental change, exposure to an irritant, exposure to an allergen and symptoms of an upper respiratory infection. The sympt oms occur intermittently. The episodes occur weekly. The patient describes this as mild and worsening. Symptoms are exacerbated by cold temperature. Symptoms are relieved by inhaler use, rest and oral s teroids, while symptoms are not relieved by lying down. Associated symptoms include allergy symptoms (Was to have allergy injections but was not interested in getting injections regularly, is now beginn ing to reconsider), while associated symptoms do not include orthopnea, fever, chills or upper respiratory infection symptoms. Current treatment includes inhaled albuterol, inhaled long-acting beta-2 ag onists, inhaled corticosteroids and leukotriene modifiers. The patient reports use of rescue bronchodilator 1 times a day. Bronchodilator use is becoming less frequent. By report there is good complianc e with treatment, good tolerance of treatment and fair symptom control. Pertinent medical history includes allergic rhinitis and gastroesophageal reflux , while pertinent medical history does not include hospitalization for asthma, intubation, chronic obstructive pulmonary disease , other pulmonary disease, smoking, recurrent bronchitis, recurrent pneumonia or hypertension. The patient has not been expo sed to wood burning stove, mold/mildew in the home, tobacco smoke, animal dander, aspirin or nonsteroidal anti-inflammatory drugs. Pertinent family history includes chronic obstructive pulmonary disease , cardiovascular disease and lung cancer, while pertinent family history does not include asthma. The patient is currently able to do activities of daily living without limitations and able to do housew ork without limitations. Past evaluation has included pulmonary function testing, chest x-ray, chest CT ( at scan was done after a chest x-ray showed a nodule.), allergy consultation, a specialist evaluation and allergy testing. Encounter Diagnosis: ASTHMA Office Visit 03-Aug-2016 14:45 To 10-Aug-2016 12:01 Encounter Reason: ASTHMA, FOLLOW UP - The patient's long-term asthma pattern may be classified as mild persistent. The [facility] last clinic visit was 6 month(s) ago. Management changes made at the last visit include adding a ZPak and prednisone. The patient's asthma causes daytime symptoms 1 to 2 times per week. The patient's as thma never disturbs sleep. Symptoms include wheezing, chest tightness, shortness of breath and non-productive cough, while symptoms do not include productive cough or chest pain. The patient describes t he difficulty breathing as chest tightness. Onset of symptoms was 18 year(s) ago. Onset followed an environmental change, exposure to an irritant, exposure to an allergen and symptoms of an upper respir atory infection. The symptoms occur intermittently. The episodes occur weekly. The patient describes this as mild and worsening. Symptoms are exacerbated by cold temperature. Symptoms are relieved by in haler use, rest and oral steroids, while symptoms are not relieved by lying down. Associated symptoms include allergy symptoms (Was to have allergy injections but was not interested in getting injection s regularly, is now beginning to reconsider), while associated symptoms do not include orthopnea, fever, chills or upper respiratory infection symptoms. Current treatment includes inhaled albuterol, inh aled long-acting beta-2 agonists, inhaled corticosteroids and leukotriene modifiers. The patient reports use of rescue bronchodilator 1 times a day. Bronchodilator use is becoming less frequent. By repo rt there is good compliance with treatment, good tolerance of treatment and fair symptom control. Pertinent medical history includes allergic rhinitis and gastroesophageal reflux, while pertinent medica l history does not include hospitalization for asthma, intubation, chronic obstructive pulmonary disease, other pulmonary disease, smoking, recurrent bronchitis, recurrent pneumonia or hypertension. The patient has not been exposed to wood burning stove, mold/mildew in the home, tobacco smoke, animal dander, aspirin or nonsteroidal anti-inflammatory drugs. Pertinent family history includes chronic obs tructive pulmonary disease, cardiovascular disease and lung cancer, while pertinent family history does not include asthma. The patient is currently able to do activities of daily living without limitat ions and able to do housework without limitations. Past evaluation has included pulmonary function testing, chest x-ray, chest CT ( at scan was done after a chest x-ray showed a nodule.), allergy consul tation, a specialist evaluation and allergy testing. Encounter Diagnosis: ASTHMA Medication Order 14-Apr-2016 14:21 To 14-Apr-2016 16:02 Encounter Diagnosis: ASTHMA [facility] Office Visit 02-Mar-2016 10:15 To 02-Mar-2016 11:07 Encounter Reason: ASTHMA, FOLLOW UP - The patient's long-term asthma pattern may be classified as mild persistent. The [facility] last clinic visit was 6 month(s) ago. Management changes made at the last visit include adding a ZPak and prednisone. The patient's asthma causes daytime symptoms 1 to 2 times per week. The patient's as thma never disturbs sleep. Symptoms include wheezing, chest tightness, shortness of breath and non-productive cough, while symptoms do not include productive cough or chest pain. The patient describes t he difficulty breathing as chest tightness. Onset of symptoms was 18 year(s) ago. Onset followed an environmental change, exposure to an irritant, exposure to an allergen and symptoms of an upper respir atory infection. The symptoms occur intermittently. The episodes occur weekly. The patient describes this as mild and worsening. Symptoms are exacerbated by cold temperature. Symptoms are relieved by in haler use, rest and oral steroids, while symptoms are not relieved by lying down. Associated symptoms include allergy symptoms (Was to have allergy injections but was not interested in getting injection s regularly, is now beginning to reconsider), while associated symptoms do not include orthopnea, fever, chills or upper respiratory infection symptoms. Current treatment includes inhaled albuterol, inh aled long-acting beta-2 agonists, inhaled corticosteroids and leukotriene modifiers. The patient reports use of rescue bronchodilator 1 times a day. Bronchodilator use is becoming less frequent. By repo rt there is good compliance with treatment, good tolerance of treatment and fair symptom control. Pertinent medical history includes allergic rhinitis and gastroesophageal reflux, while pertinent medica l history does not include hospitalization for asthma, intubation, chronic obstructive pulmonary disease, other pulmonary disease, smoking, recurrent bronchitis, recurrent pneumonia or hypertension. The patient has not been exposed to wood burning stove, mold/mildew in the home, tobacco smoke, animal dander, aspirin or nonsteroidal anti-inflammatory drugs. Pertinent family history includes chronic obs tructive pulmonary disease, cardiovascular disease and lung cancer, while pertinent family history does not include asthma. The patient is currently able to do activities of daily living without limitat ions and able to do housework without limitations. Past evaluation has included pulmonary function testing, chest x-ray, chest CT ( at scan was done after a chest x-ray showed a nodule.), allergy consul tation, a specialist evaluation and allergy testing. Encounter Diagnosis: ASTHMA Medication Order 20-Aug-2015 12:51 To 20-Aug-2015 14:53 Encounter Diagnosis: ASTHMA [facility] Medication Order 25-Jun-2015 10:52 To 25-Jun-2015 11:31 Encounter Diagnosis: ASTHMA [facility] Office Visit 04-Mar-2015 10:24 To 04-Mar-2015 16:46 Encounter Reason: ASTHMA, FOLLOW UP - The patient's long-term asthma pattern may be classified as intermittent. The [facility] t clinic visit was 6 month(s) ago. Management changes made at the last visit include adding a zpack in october. The patient's asthma causes daytime symptoms 1 to 2 times per week. The patient's asthma never disturbs sleep. Symptoms include wheezing, chest tightness, shortness of breath and non-productive cough, while symptoms do not include productive cough or chest pain. The patient describes the di fficulty breathing as chest tightness. Onset of symptoms was 17 year(s) ago. Onset followed an environmental change, exposure to an irritant, exposure to an allergen and symptoms of an upper respiratory infection. The symptoms occur intermittently. The episodes occur weekly. The patient describes this as mild and unchanged. Symptoms are exacerbated by cold temperature. Symptoms are relieved by inhaler use, rest and oral steroids, while symptoms are not relieved by lying down. Associated symptoms include allergy symptoms (Was to have allergy injections but was not interested in getting injections reg ularly), while associated symptoms do not include orthopnea, fever, chills or upper respiratory infection symptoms. Current treatment includes inhaled albuterol, inhaled long-acting beta-2 agonists, inh aled corticosteroids and leukotriene modifiers. The patient reports use of rescue bronchodilator 1 times a day. Bronchodilator use is becoming less frequent. By report there is good compliance with jazmín tment, good tolerance of treatment and fair symptom control. Pertinent medical history includes allergic rhinitis and gastroesophageal reflux, while pertinent medical history does not include hospitaliz ation for asthma, intubation, chronic obstructive pulmonary disease, other pulmonary disease, smoking, recurrent bronchitis, recurrent pneumonia or hypertension. The patient has not been exposed to wood burning stove, mold/mildew in the home, tobacco smoke, animal dander, aspirin or nonsteroidal anti-inflammatory drugs. Pertinent family history includes chronic obstructive pulmonary disease, cardiovas cular disease and lung cancer, while pertinent family history does not include asthma. The patient is currently able to do activities of daily living without limitations and able to do housework without limitations. Past evaluation has included pulmonary function testing, chest x- ray, chest CT ( at scan was done after a chest x-ray showed a nodule.), allergy consultation, a specialist evaluation and allergy testing. Encounter Diagnosis: ASTHMA Office Visit 27-Feb-2015 14:17 To 04-Mar-2015 13:41 Encounter Diagnosis: PULMONARY NODULES [facility] Historical Summary 19-Oct-2014 13:50 To 19-Oct-2014 13:51 [facility] Historical Summary 03-Sep-2014 11:59 To 03-Sep-2014 12:00 [facility] Office Visit 03-Sep-2014 10:22 To 03-Sep-2014 12:28 Encounter Reason: ASTHMA, FOLLOW UP - The patient's long-term asthma pattern may be classified as intermittent. The [facility] ient's asthma causes daytime symptoms 1 to 2 times per week. The patient's asthma never disturbs sleep. Symptoms include wheezing, chest tightness, shortness of breath and non-productive cough, while sy mptoms do not include productive cough or chest pain. The patient describes the difficulty breathing as chest tightness. Onset of symptoms was 17 year(s) ago. Onset followed an environmental change, exp osure to an irritant, exposure to an allergen and symptoms of an upper respiratory infection. The symptoms occur intermittently. The episodes occur weekly. The patient describes this as mild and unchang ed. Symptoms are exacerbated by cold temperature. Symptoms are relieved by inhaler use, rest and oral steroids, while symptoms are not relieved by lying down. Associated symptoms include allergy symptom s (Was to have allergy injections but was not interested in getting injections regularly), while associated symptoms do not include orthopnea, fever, chills or upper respiratory infection symptoms. Curr ent treatment includes inhaled albuterol, inhaled long-acting beta-2 agonists, inhaled corticosteroids and leukotriene modifiers. The patient reports use of rescue bronchodilator 1 times a day. Bronchod ilator use is becoming less frequent. By report there is good compliance with treatment, good tolerance of treatment and fair symptom control. Pertinent medical history includes allergic rhinitis and ga stroesophageal reflux, while pertinent medical history does not include hospitalization for asthma, intubation, chronic obstructive pulmonary disease, other pulmonary disease, smoking, recurrent bronchi tis, recurrent pneumonia or hypertension. The patient has not been exposed to wood burning stove, mold/mildew in the home, tobacco smoke, animal dander, aspirin or nonsteroidal anti-inflammatory drugs. Pertinent family history includes chronic obstructive pulmonary disease, cardiovascular disease and lung cancer, while pertinent family history does not include asthma. The patient is currently able to do activities of daily living without limitations and able to do housework without limitations. Past evaluation has included pulmonary function testing, chest x-ray, chest CT ( at scan was done after a chest x-ray showed a nodule.), allergy consultation, a specialist evaluation and allergy testing. Encounter Diagnosis: ASTHMA Historical Summary 28-Aug-2014 9:29 To 28-Aug-2014 9:34 [facility] Historical Summary 28-Aug-2014 8:56 To 28-Aug-2014 9:29 [facility] Payers [employer] [place] [address] [facility] [address] [place] Group Number: [id number] tel: [employer] [address] [facility] [id number] [place] Group Number: [id number] tel: [facility] [id number] [facility] [id number] tel:
[2019-05-15 11:22] VITALS: BP 125/72
--- NOTE | 2019-05-15 11:59 | ED ---
Back Pain - HPI Summary HPI Summary: 78 yr old female with left flank pain. Onset of the pain was two weeks ago when she twisted and bent and felt like her left lower ribs moved. She has had pain in the left flank and left upper quadrant area since then, but worse. She is on Xarelto for a history of clots. The patient denies falls or trauma. She has no midline back pain, no rash, no fever or chills. No NVD. NO dysuria or hematuria. She thought her pain in the flank could be a kidney stone. She wants answer to cause of pain because she is planning on driving to [place] early in four days. - History of Current Complaint Chief Complaint: [facility]CGU Stated Complaint: LEFT SIDE KIDNEY PAIN Time Seen by Provider: 05/15/19 11:46 Pain Intensity: 0 - Allergies/Home Medications Allergies/Adverse Reactions: Allergies Allergy/AdvReac Type Severity Reaction Status Date / Time codeine Allergy Vomiting Verified 05/15/19 11:10 Home Medications: Home Medications Esomeprazole(NF) [NEXium(NF)] 20 mg PO DAILY 05/15/19 [History Confirmed ] Mepolizumab (NF) [Nucala (NF)] 100 mg SUBCUT MONTHLY 05/15/19 [History Confirmed 05/15/19] Montelukast Sodium TAB* [Singulair TAB*] 10 mg PO DAILY 05/15/19 [History Confirmed 05/15/19] Rivaroxaban TAB(*) [Xarelto 10 mg (*)] 10 mg PO DAILY 05/15/19 [History Confirmed 05/15/19] celeCOXIB CAP* [CeleBREX CAP*] 200 mg PO DAILY 05/15/19 [History Confirmed 05/15] PMH/Surg Hx/FS Hx/Imm Hx Endocrine/Hematology History: Reports: Hx Thyroid Disease Denies: Hx Diabetes Cardiovascular History: Denies: Hx Hypertension, Hx Pacemaker/ICD Respiratory History: Reports: Hx Asthma, Hx Chronic Obstructive Pulmonary Disease (COPD) GI History: Reports: Hx Gastroesophageal Reflux Disease - [place] ON DAILY MEDS History: Denies: Hx Dialysis, Hx Renal Disease Musculoskeletal History: Reports: Hx Arthritis - HANDS, RT KNEE Denies: Hx Rheumatoid Arthritis, Hx Osteoporosis Sensory History: Reports: Hx Cataracts, Hx Contacts or Glasses - GLASSES Denies: Hx Hearing Aid Opthamlomology History: Reports: Hx Cataracts, Hx Contacts or Glasses - GLASSES Neurological History: Reports: Hx Headaches - ON DAILY MEDS, Other Neuro Impairments/Disorders - ARNOLDS CHIARI DEFORMITY Psychiatric History: Denies: Hx Panic Disorder - Cancer History Cancer Type, Location and Year: skin - Surgical History Surgery Procedure, Year, and Place: MANY BREAST BX (MARKER PLACED) [facility] [place],. 2009 FULL NASAL RECONSTRUCTION AFTER SKIN CA REMOVAL, MULTIPLE SURGERIES FLAGSTAFF/ [facility] [place],. BILATERAL CATARACTS;. D&Cs; Hx Anesthesia Reactions: No Infectious Disease History: No Infectious Disease History: Denies: Hx Clostridium Difficile, Hx Hepatitis, Hx Human Immunodeficiency Virus (HIV), Hx of Known/Suspected MRSA, Hx Shingles, Hx Tuberculosis, Hx Known/ Suspected VRE, Hx Known/Suspected VRSA, History Other Infectious Disease, Traveled Outside the [place] in Last 30 Days - Family History Known Family History: Positive: Cardiac Disease, Hypertension, Diabetes, Other - NO FHX DVT - Social History Alcohol Use: Occasionally Substance Use Type: Reports: None Smoking Status (MU): Former Smoker Type: Cigarettes Review of Systems Constitutional: Negative Positive: Other - left flank pain All Other Systems Reviewed And Are Negative: Yes Physical Exam Triage Information Reviewed: Yes Vital Signs On Initial Exam: Initial Vitals Temp Pulse Resp BP Pulse Ox 98.2 F 84 18 125/72 99 05/15/19 11:07 05/15/19 11:07 05/15/19 11:07 05/15/19 11:07 05/15/19 11:07 Vital Signs Reviewed: Yes Appearance: Positive: Well-Appearing, No Pain Distress Skin: Positive: Warm, Skin Color Reflects Adequate Perfusion Head/Face: Positive: Normal Head/Face Inspection Eyes: Positive: EOMI ENT: Positive: Normal ENT inspection Neck: Positive: Nontender Respiratory/Lung Sounds: Positive: Clear to Auscultation, Breath Sounds Present Cardiovascular: Positive: RRR. Negative: Murmur Abdomen Description: Positive: Nontender. Negative: CVA Tenderness (R), CVA Tenderness (L), Distended Musculoskeletal: Positive: Strength/ROM Intact Neurological: Positive: Sensory/Motor Intact, Alert, Oriented to Person Place, Time, CN Intact II-III, Normal Gait, Speech Normal Psychiatric: Positive: Normal Diagnostics - Vital Signs Vital Signs Temp Pulse Resp BP Pulse Ox 05/15/19 11:07 98.2 F 84 18 125/72 99 - Laboratory Lab Results: Lab Results 05/15/19 Range/Units 11:31 POC Urine Color Yellow POC Urine Clarity Clear POC Urine pH 7.0 (5-9) POC Ur Specif [place] 1.010 (1.010-1.030) POC Urine Protein Negative (Negative) POC Ur Glucose (UA) Negative (Negative) POC Urine Ketones Negative (Negative) POC Urine Blood Negative (Negative) POC Urine Nitrite Negative (Negative) POC Urine Bilirubin Negative (Negative) POC Urine Urobilinogen 1.0 (Negative) POC U Leukocyte Esteras Negative (Negative) Lab Statement: Any lab studies that have been ordered have been reviewed, and results considered in the medical decision making process. Back Pain Course/Dx - Course Course Of Treatment: 78 yr old female with left flank pain and upper abdominal pain. She will go to the ER for further evaluation. - Diagnoses Provider Diagnoses: Left flank pain Discharge ED - Sign-Out/Discharge Documenting (check all that apply): Patient Departure All imaging exams completed and their final reports reviewed: No Studies - Discharge Plan Condition: Good Disposition: HOME-RECOMMEND TO ED Patient Education Materials: Flank Pain (ED) Referrals: Sergio Trejo MD [Primary Care Provider] - 3 Days Additional Instructions: YOU SHOULD GO TO THE ER FOR FURTHER WORK UP OF YOUR FLANK PAIN NOW. - Billing Disposition and Condition Condition: GOOD Disposition: Home-Recommend to ED
== END 2019-05-15 11:59 | disposition home health service (06) ==
LOC: UCCORT 10:57
DX: R10.9 Unspecified abdominal pain (principal); Z86.2 Personal history of diseases of the blood and blood-forming organs and certain disorders involving the immune mechanism; Z79.01 Long term (current) use of anticoagulants; R51 Headache; Q07.00 Arnold-Chiari syndrome without spina bifida or hydrocephalus; Z87.891 Personal history of nicotine dependence
CPT/HCPCS: 81003; 99212; G0463